=== PATIENT | female | born 1970 | race African-American/Black ===

== ENCOUNTER 2019-01-30 11:07 | Outpatient (CLI) | payer BC ==
--- NOTE | 2019-01-30 11:44 | RAD ---
XR Abdomen 2 View 2 view abdomen series CLINICAL INDICATION: Pain FINDINGS: Lung bases are clear. No free air. No significantretained fecal material is seen within colon. No acute osseous pathology. IMPRESSION: No acute process.
== END 2019-01-30 11:08 | disposition home or self-care (01) ==
LOC: BICRAD 11:07
PROVIDERS: ATTEND Family Medicine
DX: R10.10 Upper abdominal pain, unspecified (principal)
CPT/HCPCS: 74019

== ENCOUNTER 2019-03-06 09:27 | Outpatient (CLI) | payer BC ==
[~2019-03-06 09:27] MED LIST: Iopamidol 300 61% 100 ML VIAL FS ONE
--- NOTE | 2019-03-06 11:32 | CT ---
CT ABDOMEN AND PELVIS WITH ORAL AND IV CONTRAST: Date: 03/06/19 HISTORY: Right upper quadrant pain. Gastroesophageal reflux disease. Abdominal distention (gaseous). Nausea, c onstipation, and weight gain. COMPARISON: None. FINDINGS: The lung bases are clear. The liver, spleen, pancreas, adrenal glands, and kidneys are normal. No calcified gallstones are seen . No free air, free fluid, or lymphadenopathy seen in the abdomen or pelvis. The small bowel loops are not abnormally dilated. No pericolonic inflammatory changes are seen. The p atient is post hysterectomy. Ovaries are present. There is no evidence of aneurysmal dilatation of th e abdominal aorta. No osteolytic or osteoblastic lesions are seen. IMPRESSION: No significant abnormalities are identified. POS: OFF
== END 2019-03-06 09:28 | disposition home or self-care (01) ==
LOC: SCSCT 09:27
PROVIDERS: ATTEND Internal Medicine Gastroenterology
DX: K21.9 Gastro-esophageal reflux disease without esophagitis (principal); R14.0 Abdominal distension (gaseous); K59.00 Constipation, unspecified; R11.0 Nausea; R63.5 Abnormal weight gain
CPT/HCPCS: 74160; Q9967

== ENCOUNTER 2021-09-19 12:54 | Outpatient (CLI) | payer BC | END 2021-09-19 12:55 | disposition home or self-care (01) | LOC: BICRAD 12:54 | PROVIDERS: ATTEND Nurse Practitioner Family | DX: R05.3 Chronic cough (principal) | CPT/HCPCS: 71046 ==

== ENCOUNTER 2021-11-20 13:32 | Outpatient (CLI) | payer BC | END 2021-11-20 13:33 | disposition home or self-care (01) | LOC: ULT 13:32 | PROVIDERS: ATTEND Nurse Practitioner Family | DX: M79.661 Pain in right lower leg (principal); M79.662 Pain in left lower leg | CPT/HCPCS: 93923; 93970 ==